=== PATIENT | male | born 1975 | race Caucasian/White ===

== ENCOUNTER 2020-11-23 07:02 | Emergency (ER) | payer BC, SELFPAY ==
[2020-11-23 07:24] VITALS: BP 139/87; PULSE 75; RESP 18; TEMP 37; O2SAT 100
[2020-11-23 07:50] LABS: Add Urine Microscopic? YES; Appearance Urine Cloudy (Clear); Bilirubin Urine Negative (Negative); Blood Urine 2+ (Negative); Color Urine Yellow (Yellow); Glucose Urine UA Negative (Negative); Ketones Urine Negative (Negative); Leukocyte Esterase Ur Negative LEU/UL (Negative); Mucus Urine Few /lpf; Nitrate Urine Negative (Negative); Protein Urine 1+ mg/dL (Negative); RBC Urine 21-50 /hpf (0-2); Specific Grav Ur 1.026 (1.001-1.035); Urobilinogen Urine Negative mg/dL (<2.0); WBC Urine 0-3 /hpf
[2020-11-23] MEDS: KETOROLAC 30 MG/ML VIAL (*BKC) IV PUSH (07:52)
[2020-11-23] MEDS: SODIUM CHLORIDE 0.9% IV 1,000 ML 999 ML IV CONT (07:52)
--- NOTE | 2020-11-23 07:52 | ED.GENADULT ---
HPI - General Adult General Chief complaint: Back Pain/Injury Stated complaint: back pain ? kidney stone Time Seen by Provider: 11/23/20 07:06 History of Present Illness HPI narrative: Patient is a 45-year-old male who presents ER with left-sided flank pain. Sudden onset at 6 AM. Associate with sweats and nausea. Has history of kidney stones and this feels similar but much more intense. After arrival here patient passed his kidney stone into his urine specimen cup. Still having some persistent discomfort but it has improved. No dysuria/fever/chills. Related Data Home Medications Medication Instructions Recorded Confirmed alprazolam 0.5 mg tablet 0.25 mg PO tablet 06/07/19 03/31/20 Allergies Allergy/AdvReac Type Severity Reaction Status Date / Time No Known Allergies Allergy Verified 11/23/20 07:23 Review of Systems Review of Systems: All systems reviewed & are unremarkable except as noted in HPI and below Constitutional: Constitutional: Denies chills, Denies fever(s) and Denies weakness Gastrointestinal: Gastrointestinal: Reports abdominal pain, Reports nausea and Denies vomiting Genitourinary: Genitourinary: Denies dysuria, Reports urinary frequency and Denies urinary incontinence Musculoskeletal: Musculoskeletal: Reports back pain and Denies muscle cramps PMFSH Past Medical History Medical History (Updated 11/23/20 @ 08:35 by Nura Molina MD) Hyperlipidemia HEATHER (obstructive sleep apnea) Surgical History Surgical History (Updated 11/23/20 @ 07:58 by Nura Molina MD) No pertinent past surgical history Family History Family History Mother Patient's mother is in good health Family history of elevated blood lipids Father Family history of heart disease in male family member before age 55 Social History Social History Smoking packs per day: 2 Smoking cigarettes per day: 40.0 Years smoked: 5 Smoking pack-years: 10.00 Smoking status: Former smoker Second hand tobacco smoke exposure: No Smoking end date: 05/19/00 Alcohol intake: current Gender identity (if verbalized by the patient): Male Exam Narrative: Exam Narrative: GENERAL: Well-appearing, well-nourished, and in no acute distress. HEAD: Normocephalic, atraumatic. CHEST: Clear to auscultation. No respiratory distress. HEART: Regular rate and rhythm. Normal peripheral pulses. ABDOMEN: Soft, nontender, nondistended. Right CVA tenderness. EXTREMITIES: Normal range of motion. No edema. SKIN: Warm, dry, no rash. NEURO: Alert and oriented x3. PSYCH: Normal mood and affect. Course Course Emergency Course: Pain resolved. Informed results. Discharge home. Vital Signs Vital signs: Vital Signs Temperature 98.6 F 11/23/20 07:24 Pulse Rate 75 11/23/20 07:24 Respiratory Rate 18 11/23/20 07:24 Blood Pressure 139/87 11/23/20 07:24 Pulse Oximetry 100 11/23/20 07:24 Temperature 98.6 F 11/23/20 07:24 Pulse Rate 75 11/23/20 07:24 Respiratory Rate 18 11/23/20 07:24 Blood Pressure 139/87 11/23/20 07:24 Pulse Oximetry 100 11/23/20 07:24 Medical Decision Making Vital Signs Vital Signs: Vital Signs Temperature 98.6 F 11/23/20 07:24 Pulse Rate 75 11/23/20 07:24 Respiratory Rate 18 11/23/20 07:24 Blood Pressure 139/87 11/23/20 07:24 Pulse Oximetry 100 11/23/20 07:24 Temperature 98.6 F 11/23/20 07:24 Pulse Rate 75 11/23/20 07:24 Respiratory Rate 18 11/23/20 07:24 Blood Pressure 139/87 11/23/20 07:24 Pulse Oximetry 100 11/23/20 07:24 Lab Data Labs: Lab Results 11/23/20 Range/Units 07:38 Urine Color Yellow (Yellow) Urine Appearance Cloudy H (Clear) Urine pH 5.0 (5.0-9.0) Ur Specific [place] 1.026 (1.001-1.035) Urine Protein 1+ H (Negative) mg/dL Urine Glucose (UA) Negative (Negative) mg/dL
[2020-11-23 08:46] VITALS: BP 124/87; PULSE 80; RESP 16; O2SAT 99
== END 2020-11-23 08:48 | disposition home or self-care (01) ==
PROVIDERS: Emergency Provider Emergency Medicine; PCP Internal Medicine
DX: N20.0 Calculus of kidney (principal); E78.5 Hyperlipidemia, unspecified; Z87.891 Personal history of nicotine dependence
CPT/HCPCS: 81001; 96361; 96374; 99284; J1885; J7030

== ENCOUNTER 2021-01-12 10:50 | Emergency (ER) | payer BC, SELFPAY ==
--- NOTE | ~2021-01-12 | XR_ITS ---
EXAMINATION: XR chest 2V DATE: 01/12/2021 11:17 INDICATION: Left-sided chest pain TECHNIQUE: PA and lateral views of the chest were obtained. COMPARISON: Chest radiograph dated 05/13/2007 FINDINGS: Again seen are a couple small calcified nodules in the left lung consistent with old granulomatous di sease. No other airspace opacities, pulmonary edema, pleural effusion or pneumothorax. The cardiomedi astinal silhouette is normal. Visualized bones and soft tissues are unremarkable. IMPRESSION: 1. No acute cardiopulmonary disease. Reviewed, dictated and finalized at location B.
--- NOTE | 2021-01-12 11:01 | ECG_ITS ---
Measurements Intervals [place] Rate: 87 P: 49 [place]: 141 QRS: 48 QRSD: 106 T: 15 QT: 378 QTc: 457 Interpretive Statements SINUS RHYTHM NONSPECIFIC T-WAVE ABNORMALITY- INF/LAT LEADS BASELINE ARTIFACT- II, III, AVR, AVF, V1, V3-V6 BORDERLINE ECG Electronically Signed On 01-12-2021 15:01:16 CDT by Samir Fernandes D.O.
[2021-01-12 11:02] VITALS: BP 182/108; PULSE 88; RESP 16; TEMP 36.8; O2SAT 100
[2021-01-12 11:17] LABS: Basophils Absolute Auto 0.1 K/mm3 (0.0-0.1); Eosinophils Absolute Auto 0.1 K/mm3 (0-0.3); Eosinophils Percent Auto 1.2 % (0-4.4); Hemoglobin 15.9 g/dL (14.0-18.0); Immature Granulocyte Absolute 0.02 K/mm3 (0.00-0.031); Immature Granulocyte Percent A 0.3 % (0-0.5); Lymphocytes Absolute Auto 2.05 K/mm3 (0.9-3.2); Lymphocytes Percent Auto 30.5 % (18.3-44.2); Mean Corpuscular HGB Conc 33.8 g/dl (32-36); Mean Corpuscular Hemoglobin 30.5 pg (26-34); Mean Platelet Volume 10.6 fl (7.4-10.4); Monocytes Absolute Auto 0.7 K/mm3 (0.1-0.6); Monocytes Percent Auto 10.6 % (2.6-8.5); Neutrophils Absolute Auto 3.8 K/mm3 (1.3-6.7); Neutrophils Percent Auto 56.4 % (45.5-73.1); Platelet Count Result 273 k/mm3 (150-375); Red Blood Count 5.22 M/mm3 (4.6-6.20); Red Cell Distribution Width 12.2 % (11.5-14.5); White Blood Count 6.7 K/mm3 (4.5-10.0)
[2021-01-12 11:27] LABS: Anion Gap 8 mmol/L (8-16); Blood Urea Nitrogen 14 mg/dL (9-20); Calcium 9.5 mg/dL (8.4-10.2); Carbon Dioxide 27 mmol/L (22-30); Chloride 101 mmol/L (98-107); Estimated CRCL calculation 87 ml/min; Estimated Glomerular Filt Rate > 60; Glucose 105 mg/dL (65-110); Potassium 4.6 mmol/L (3.4-5.0); Sodium 136 mmol/L (137-145)
[2021-01-12 11:33] LABS: INR 0.9; Prothrombin Time 12.3 Seconds (11.1-14.7)
[2021-01-12 11:35] LABS: Partial Thromboplastin Time 24.5 SECONDS (22.3-36.8)
[2021-01-12 11:38] LABS: Troponin I < 0.012 ng/mL (0.000-0.034)
[2021-01-12] MEDS: ASPIRIN 81 MG CHEWABLE TABLET 324 MG PO (11:38)
[2021-01-12 12:58] VITALS: BP 145/95; PULSE 77; RESP 16; O2SAT 100
--- NOTE | 2021-01-12 13:12 | ED.CHESTPAIN ---
HPI - Chest Pain General Chief Complaint: Chest Pain Stated Complaint: Chest Pain Time Seen by Provider: 01/12/21 11:09 Source: patient Mode of arrival: ambulatory Limitations: no limitations History of Present Illness HPI narrative: Patient is 45 years old white male brought to the emergency room by his who is complaining of intermittent chest pain for 1-1/2-week, sharp, tightness, usually comes at night, at rest or while sleeping. 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 Patient does not take medicine, does not smoke drinks occasionally does not use marijuana. Currently patient is asymptomatic. is telling me that patient have tremendous amount of stress lately Related Data Allergies Allergy/AdvReac Type Severity Reaction Status Date / Time No Known Allergies Allergy Verified 01/12/21 11:09 Review of Systems Review of Systems: CONSTITUTIONAL: Denies fever, chills, or sweats. EYES: Denies visual changes, redness, or discharge. ENT: Denies rhinorrhea, congestion, sore throat, or otalgia. CARDIOVASCULAR: Denies chest pain, palpitations, or edema. RESPIRATORY: Denies cough or dyspnea. GASTROINTESTINAL: Denies abdominal pain, nausea, vomiting, or diarrhea. GENITOURINARY: Denies dysuria or hematuria. SKIN: Denies rash or itching. MUSCULOSKELETAL: Denies back pain, joint pain, or myalgia. NEUROLOGIC: Denies headache, numbness, or weakness. PSYCHIATRIC: Denies anxiety or depression. [facility] Past Medical History Medical History Hyperlipidemia HEATHER (obstructive sleep apnea) Surgical History Surgical History No pertinent past surgical history Family History Family History Mother Patient's mother is in good health Family history of elevated blood lipids Father Family history of heart disease in male family member before age 55 Social History Social History Smoking packs per day: 2 Smoking cigarettes per day: 40.0 Years smoked: 5 Smoking pack-years: 10.00 Smoking status: Former smoker Second hand tobacco smoke exposure: No Smoking end date: 01/01/01 Alcohol intake: current Gender identity (if verbalized by the patient): Male Exam Narrative: General appearance: Well-developed, well-nourished Skin: Normal color Head: Normocephalic, nontraumatic Eyes: Clear conjunctiva ENT: Oropharynx normal, ears normal, nose normal Neck: Supple, nontender Chest and respiratory: Airway patent, no respiratory distress, no accessory muscle use Heart: Regular rate/rhythm Abdomen: Soft, nontender, no organomegaly, quiet bowel sounds Vascular: Normal peripheral pulses, normal capillary refill. 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 Patient does not have any coronary risk factors. Heart score is 1. Different
[2021-01-12 13:29] LABS: D Dimer < 0.22 ug/mL (<0.48)
[2021-01-12 13:35] VITALS: BP 133/87; PULSE 78; RESP 16; O2SAT 98
== END 2021-01-12 13:37 | disposition home or self-care (01) ==
PROVIDERS: Emergency Provider Emergency Medicine; PCP Internal Medicine
DX: R07.89 Other chest pain (principal); F41.9 Anxiety disorder, unspecified; G47.33 Obstructive sleep apnea (adult) (pediatric); E78.5 Hyperlipidemia, unspecified; Z87.891 Personal history of nicotine dependence; R94.31 Abnormal electrocardiogram [ECG] [EKG]
CPT/HCPCS: 36415; 71046; 80048; 84484; 85025; 85380; 85610; 85730; 93005; 99284; A9270

== ENCOUNTER 2021-06-18 16:50 | Outpatient (CLI) | payer BC, SELFPAY ==
--- NOTE | ~2021-06-18 | XR_ITS ---
EXAMINATION: XR wrist RT min 3V EXAM DATE: 06/18/2021 17:14 INDICATION: M25.531 - Pain in right wrist . TECHNIQUE: Right wrist frontal, frontal with ulnar deviation, oblique and lateral projections obtain ed and reviewed. There is no prior study for comparison. FINDINGS: Right wrist scapholunate joint space is maintained. There are no acute fractures or disloca tions identified. There is no subcutaneous gas. The soft tissue is unremarkable. There are no rad iopaque foreign bodies. IMPRESSION: 1. Unremarkable XR wrist RT min 3V exam. Reviewed, dictated and finalized at location G. 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
== END 2021-06-18 16:51 ==
LOC: MICIMG 16:52
PROVIDERS: PCP Internal Medicine; Visit Provider Internal Medicine
DX: M25.531 Pain in right wrist (principal)
CPT/HCPCS: 73110

== ENCOUNTER → 2022-11-06 11:05 | Outpatient (CLI) | payer BC, SELFPAY ==
--- NOTE | ~2022-11-06 | XR_ITS ---
Lumbosacral Spine: AP and lateral views Clinical History: Pain Findings: The normal lordotic curve is maintained. The vertebral bodies and posterior elements are i ntact. The intervertebral disc spaces are preserved. The sacroiliac joints are normally outlined. Impression: No significant abnormality. Reviewed, dictated and finalized at [facility]. Impression: No significant abnormality.
--- NOTE | ~2022-11-06 | XR_ITS ---
Cervical Spine: AP, lateral, open-mouth views Clinical History: Pain Findings: The normal lordotic curve is maintained. The vertebral bodies and posterior elements appea r intact. The intervertebral disc spaces are well maintained. Pre-vertebral soft tissues are unremar kable. Impression: No significant abnormality is seen. Reviewed, dictated and finalized at [facility]. Impression: No significant abnormality is seen.
--- NOTE | ~2022-11-06 | XR_ITS ---
Thoracic spine: Clinical Indication: Back pain AP and lateral views were performed. No fracture is seen. There is normal alignment of the vertebrae. The intervertebral disc spaces appe ar normal. Paravertebral soft tissues appear normal. Impression: No significant abnormalities noted. Reviewed, dictated and finalized at [facility]. Impression: No significant abnormalities noted.
== END ==
PROVIDERS: PCP Internal Medicine; Visit Provider Internal Medicine
DX: M54.2 Cervicalgia (principal); M54.50 Low back pain, unspecified
CPT/HCPCS: 72040; 72070; 72100

== ENCOUNTER 2023-07-04 09:26 | Inpatient (IN) | payer BC, SELFPAY ==
[2023-07-04] VITALS (11 sets, daily range): BP systolic 130–154; BP diastolic 72–95; PULSE 109–125; RESP 18–27; TEMP 36.5–38.5; O2SAT 97–100; BMI 29.0
--- NOTE | ~2023-07-04 | CT_ITS ---
EXAMINATION: CT abdomen pelvis wo con DATE: 07/04/2023 11:16 INDICATION: Right flank pain and right lower quadrant abdominal pain. TECHNIQUE: Computed tomography (CT) of the abdomen and pelvis was performed without intravenous contr ast. Automated exposure control and iterative reconstruction technique were employed. The dose-length product was 617.33 mGy-cm. COMPARISON: 09/28/2004 FINDINGS: Calcified left lower lobe nodule consistent with old granulomatous disease. Mild discoid atelectasis in the left lower lobe. Heart size is normal. No pericardial or pleural effusion. Liver, gallbladder, spleen, pancreas, bilateral adrenal glands and kidneys are normal. No urolithiasis or hydronephrosis . Bowels including the appendix are normal. There is haziness to the fat surrounding the decompressed bladder, the enlarged prostate in the bilateral seminal vesicles suspicious for cystitis, prostatiti s and seminal vesiculitis. No abscess or free intraperitoneal gas or fluid. No pathologically enlarge d abdominal or pelvic lymphadenopathy. Mild thoracic and lumbar spondylosis. IMPRESSION: 1. Inflammatory stranding about the bladder, prostate and seminal vesicles suspicious for cystitis, p rostatitis and seminal vesiculitis. Reviewed, dictated and finalized at location A. OTIST/PROSTHETIST IMPRESSION: 1. Inflammatory stranding about the bladder, prostate and seminal vesicles susp icious for cystitis, prostatitis and seminal vesiculitis.
[2023-07-04 09:58] LABS: Basophils Absolute Auto 0.1 K/mm3 (0.0-0.1); Basophils Percent Auto 0.4 % (0.2-1.2); Eosinophils Absolute Auto 0.1 K/mm3 (0-0.3); Eosinophils Percent Auto 0.4 % (0-4.4); Hematocrit 43.1 % (42.0-52.0); Hemoglobin 14.7 g/dL (14.0-18.0); Immature Granulocyte Absolute 0.12 K/mm3 (0.00-0.031); Immature Granulocyte Percent A 0.7 % (0-0.5); Lymphocytes Absolute Auto 2.03 K/mm3 (0.9-3.2); Lymphocytes Percent Auto 11.4 % (18.3-44.2); Mean Corpuscular HGB Conc 34.1 g/dl (32-36); Mean Corpuscular Hemoglobin 30.9 pg (26-34); Mean Corpuscular Volume 90.5 fl (80-100); Mean Platelet Volume 10.7 fl (7.4-10.4); Monocytes Absolute Auto 1.8 K/mm3 (0.1-0.6); Monocytes Percent Auto 9.8 % (2.6-8.5); Neutrophils Absolute Auto 13.7 K/mm3 (1.3-6.7); Neutrophils Percent Auto 77.3 % (45.5-73.1); Platelet Count Result 267 k/mm3 (150-375); Red Blood Count 4.76 M/mm3 (4.6-6.20); Red Cell Distribution Width 12.4 % (11.5-14.5); White Blood Count 17.8 K/mm3 (4.5-10.0)
[2023-07-04 10:09] LABS: Alanine Aminotransferase 76 U/L (6-50); Albumin Level 4.3 g/dL (3.5-5.1); Alkaline Phosphatase 83 U/L (38-126); Anion Gap 6 mmol/L (8-16); Aspartate Amino Transferase 54 U/L (17-59); Bilirubin,Total 1.2 mg/dL (0.2-1.3); Blood Urea Nitrogen 11 mg/dL (9-20); Calcium 9.1 mg/dL (8.4-10.2); Carbon Dioxide 26 mmol/L (22-30); Chloride 107 mmol/L (98-107); Estimated CRCL calculation 73 ml/min; Estimated Glomerular Filt Rate > 60; Glucose 114 mg/dL (65-110); Potassium 4.2 mmol/L (3.4-5.0); Sodium 139 mmol/L (137-145)
[2023-07-04 10:13] LABS: Appearance Urine Cloudy (Clear); Bacteria Urine None Seen /hpf; Bilirubin Urine Negative (Negative); Color Urine Dark Yellow (Yellow); Glucose Urine UA Negative (Negative); Ketones Urine Trace mg/dL (Negative); Leukocyte Esterase Ur Trace LEU/UL (Negative); Need Manual Microscopic Reviewed; Nitrate Urine Negative (Negative); Protein Urine 2+ mg/dL (Negative); RBC Urine 0-2 /hpf (0-2); Specific Grav Ur 1.026 (1.001-1.035); Squamous Epithelial Cell Urine None seen /hpf (Few); WBC Urine 51-100 /hpf
[2023-07-04 10:17] LABS: Add Urine Microscopic? YES
[2023-07-04 11:20] LABS: Influenza A QL RT-PCR Negative (Negative); Influenza B QL RT-PCR Negative (Negative); RSV RNA, RT-PCR Negative (Negative); SARS-CoV-2 RNA PCR Negative (Negative)
[2023-07-04] MEDS: SODIUM CHLORIDE 0.9% IV 1,000 ML 999 ML IV CONT ×2 (11:29→12:22)
--- NOTE | 2023-07-04 11:33 | ED.MALEGU ---
HPI - Male Genitourinary General Chief complaint: Urogenital-Male <KAMRAN Nieves Last Filed: 07/04/23 15:43> Stated complaint: difficulty urinating <KAMRAN Nieves Last Filed: 07/04/23 15:43> Time Seen by Provider: 07/04/23 10:29 <KAMRAN Nieves Last Filed: 07/04/23 15:43> Source: patient <KAMRAN Nieves Last Filed: 07/04/23 15:43> Mode of arrival: ambulatory <KAMRAN Nieves Last Filed: 07/04/23 15:43> Limitations: no limitations <KAMRAN Nieves Last Filed: 07/04/23 15:43> History of Present Illness HPI Narrative: Patient is a 47-year-old male who presents to the ED with difficulty urinating. Patient reports history of kidney stones. He developed pain in his right flank region, radiating around to his right lower abdomen on Friday. States pain felt similar to previous kidney stones. Pain resolved around Friday, denies significant further pain. However since Friday, patient has been having suprapubic pressure, difficulty urinating, urinary frequency/urgency, dysuria. Denies hematuria. He does report persistent fevers since Friday, Tmax 103F. Denies nausea, vomiting. at bedside notes that patient's son has been sick with influenza, however patient denies any recent cough or cold symptoms. <KAMRAN Nieves Last Filed: 07/04/23 15:43> Related Data Allergies/Adverse reactions: Allergies Allergy/AdvReac Type Severity Reaction Status Date / Time No Known Allergies Allergy Verified 07/04/23 10:57 <KAMRAN Nieves Last Filed: 07/04/23 15:43> Review of Systems Review of Systems: CONSTITUTIONAL: See HPI. CARDIOVASCULAR: Denies chest pain. RESPIRATORY: Denies dyspnea. GASTROINTESTINAL: See HPI. GENITOURINARY: See HPI. MUSCULOSKELETAL: See HPI. <KAMRAN Nieves Filed: 07/04/23 15:43> All systems reviewed & are unremarkable except as noted in HPI and below <Spring Randolph PA-C - Last Filed: 07/04/23 15:43> ON LICENSE OF [facility] Past Medical History Medical History: Medical History Borderline hypertension Hyperlipidemia <Spring Randolph PA-C - Last Filed: 07/04/23 15:43> Surgical History Surgical History: Surgical History No pertinent past surgical history <Spring Randolph PA-C - Last Filed: 07/04/23 15:43> Family History Family History: Family History Mother Patient's mother is in good health Family history of elevated blood lipids Father Family history of heart disease in male family member before age 55 <Spring Randolph PA-C - Last Filed: 07/04/23 15:43> Social History Social History: Social History Social History: Surrogate medical decision maker: Elana Hoover, spouse. Code status: Full code. Smoking packs per day: 2 Smoking cigarettes per day: 40.0 Years smoked: 5 Smoking pack-years: 10.00 Smoking status: Former smoker Tobacco type: cigarettes Second hand tobacco smoke exposure: No Alcohol intake: never Substance use: never Substance use type: does not use Do You Feel Safe in your Home?: Yes Lack of Transportation: No Lack of Food: Never True Current Housing: I Have Housing Concerned About Future Housing: No Difficulty Paying Gas/Electric Bills: No Difficulty Paying for Meds: No Currently Unemployed: No Education: Bachelor's Degree Difficulty w/ Childcare or Family Care: No Living arrangements: with family Additional living arrangements comments: Lives with family in [place]. 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
[2023-07-04 11:43] LABS: Lactic Acid Reflex 1.2 mmol/L (0.7-2.0)
[2023-07-04 14:02] LABS: Trichomonas Vag PCR NOT DETECTED (NOT DETECTE)
[2023-07-04] MEDS: VANCOMYCIN 1,500 MG/NS 500 ML 1,500 MG/500 ML BAG 250 MG IVPB (14:07)
[2023-07-04 14:25] LABS: Chlamydia trachomatis NOT DETECTED (NOT DETECTE); Neisseria gonorrhoeae PCR NOT DETECTED (NOT DETECTE)
--- NOTE | 2023-07-04 14:39 | WPDURCON ---
Assessment and Plan Assessment and plan (1) Sepsis: Code(s): A41.9 - Sepsis, unspecified organism Status: Acute Assessment and Plan: Acute UTI/prostatitis felt to be source of infection. Continue broad spectrum antibiotics while awaiting urine and blood cultures. Monitor fever curve. (2) UTI (urinary tract infection): Code(s): N39.0 - Urinary tract infection, site not specified Status: Acute Assessment and Plan: Urine culture pending; continue broad spectrum antibiotics while awaiting culture results. He will require outpatient cystoscopy for further evaluation pending resolution of infection. (3) Acute prostatitis: Code(s): N41.0 - Acute prostatitis Status: Acute Assessment and Plan: Continue antibiotics as above and tailor to urine cultures. Will require at least 2 weeks of culture specific antibiotics. (4) Seminal vesiculitis: Code(s): N49.0 - Inflammatory disorders of seminal vesicle Status: Acute Assessment and Plan: Plan as above. Urology Consult Note HPI Date Seen: 07/04/23 Requesting Physician: Lisha Moncada MD Primary Care Provider: Shemar Hernandez PA-C Consult Narrative Narrative: Marc Hoover is a healthy 47 year old male who is being seen in consultation for evaluation of prostatitis. The patient presented to the emergency department today with complaints of three days of pelvic and perineal discomfort, dysuria, fevers, and chills. He states he had a fever up to 103 at home. Endorses chills. He denies nausea or vomiting. Denies hematuria. Denies urgency or frequency. He states he has never had a urinary tract infection before. He reports no concern for STDs. He has no prior urologic issues and has never seen a urologist in the past. He reports remote history of kidney stones which have passed spontaneously. On arrival to the ER, a CT scan was completed which demonstrates inflammatory stranding about the bladder, prostate, and seminal vesicles without evidence of abscess or free fluid. His WBC is elevated at 17.8. Creatinine is 1.1. Lactic acid is within normal limits. UA is abnormal with leukocytes and WBCs. Urine culture and blood cultures are pending. He is tachycardic and tachypneic but remains afebrile. Review of Systems Review of Systems: All systems reviewed & are unremarkable except as noted in HPI and below PMFSH Past Medical History Medical History Hyperlipidemia HEATHER (obstructive sleep apnea) Surgical History Surgical History No pertinent past surgical history Family History Family History Mother Patient's mother is in good health Family history of elevated blood lipids Father Family history of heart disease in male family member before age 55 Social History Social History Smoking packs per day: 2 Smoking cigarettes per day: 40.0 Years smoked: 5 Smoking pack-years: 10.00 Smoking status: Former smoker Second hand tobacco smoke exposure: No Smoking end date: 05/19/00 Alcohol intake: current Lack of Transportation: No Lack of Food: Never True Current Housing: I Have Housing Concerned About Future Housing: No Difficulty Paying Gas/Electric Bills: No Difficulty Paying for Meds: No Currently Unemployed: No Education: Bachelor's Degree Difficulty w/ Childcare or Family Care: No Living arrangements: with family Occupation/Education: occupation 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
[2023-07-04] MEDS: ACETAMINOPHEN 325 MG TABLET 650 MG PO (15:20)
--- NOTE | 2023-07-04 15:20 | PM.IMHP ---
H&P: HPI History of Present Illness Date/Time: 07/04/23 15:30 Chief Complaint: Abdominal pain and difficulties urinating. Narrative: This is a pleasant 47-year-old male with history of kidney stone and borderline hypertension who presented to the emergency department via private vehicle from home for evaluation of abdominal pain and difficulties urinating. The patient provides the following history. Sometime on Friday he 1st noticed discomfort in the right flank which radiated into the right lower abdomen. The discomfort is similar to when he had prior kidney stones. The discomfort resolved by Friday and he figured that he must have passed a stone. However L on Friday evening he started to experience multiple urinary symptoms including frequency, urgency, dysuria, and difficulties emptying his bladder with reports that at times he just dribbles small amounts of urine. He has been running a fever since Friday with a T-max of 103? F. He has never had similar symptoms with urinating. He denies hematuria, penile discharge, and concerns for sexually transmitted infections. No nausea, vomiting, or diarrhea. His son was recently diagnosed with influenza though he denies cold or flu symptoms. In the ED: He has been afebrile since arrival. Blood pressures have been running in the 130s to 150s systolic. He is tachycardic. Persistently tachypneic and tachycardic. Labs were significant for WBC count of 17.8, BUN 11, creatinine 1.10, lactic acid 1.2. Urine showed 2+ protein, trace ketones, trace leukocyte esterase, [address] of the abdomen and pelvis showed inflammatory stranding about the bladder, prostate, and seminal vesicles. He was given a dose of ceftriaxone 1 g and vancomycin 1500 mg and he is being admitted in this setting for further antibiotics and urology consultation. Review of Systems Review of Systems: Twelve systems were reviewed and are negative except for as per HPI. [facility] Past Medical History Medical History (Updated 07/04/23 @ 21:46 by Nimo Rosario PA-C) Borderline hypertension Hyperlipidemia Obstructive sleep apnea on CPAP Surgical History Surgical History No pertinent past surgical history Family History Family History Mother Patient's mother is in good health Family history of elevated blood lipids Father Family history of heart disease in male family member before age 55 Social History Social History Social History: Surrogate medical decision maker: Elana Hoover, spouse. Code status: Full code. Smoking packs per day: 2 Smoking cigarettes per day: 40.0 Years smoked: 5 Smoking pack-years: 10.00 Smoking status: Former smoker Tobacco type: cigarettes Second hand tobacco smoke exposure: No Alcohol intake: never Substance use: never Substance use type: does not use Do You Feel Safe in your Home?: Yes Lack of Transportation: No Lack of Food: Never True Current Housing: I Have Housing Concerned About Future Housing: No Difficulty Paying Gas/Electric Bills: No Difficulty Paying for Meds: No Currently Unemployed: No Education: Bachelor's Degree Difficulty w/ Childcare or Family Care: No Living arrangements: with family Additional living arrangements comments: Lives with family in [place]. 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 Spiritual care concerns: No Meds Home Medications and Allergies Home Medications Medication Instructions Recorded Confirmed Type sertraline 25 mg tablet 25 mg PO DAILY #90 tabs 06/19/22 07/04/23 Rx Allergies Allergy/AdvReac Type Severity Reaction Status Date / Time No Known Allergies Allergy Verified 07/04/23 10:57 Vital Signs Vital Signs - 24 hr 07/04/23 09:38
[2023-07-04] MEDS: SODIUM CHLORIDE 0.9% IV 1,000 ML 100 ML IV CONT (15:30)
--- NOTE | 2023-07-04 15:32 | PC.NURSE ---
This patient, Marc Hoover, was admitted to Medical Room 343-01. Patient/family oriented to hospital policies and general routines including ID bracelet, bed and alarms, visiting hours, pain management, procedures, bathroom and other care routines, personal items, smoking policy, room service/diet, and visiting hours. Information on how to activate the Rapid Response Team has been discussed. Patient/Family are encouraged to report perceived risks to care and to ask questions if they do not understand what they are told or what they should do.
[2023-07-04] MEDS: ONDANSETRON INJ 4 MG/2 ML VIAL IV PUSH (15:43)
[2023-07-04] MEDS: HYDROcodone/acetaminophen (*CRX) 5-325 MG TABLET 1 TAB PO (19:28)
[2023-07-04] MEDS: cefTRIAXone 2 GM/NS 100 ML 2 GM/100 ML BAG IVPB (20:28)
[2023-07-05] VITALS (11 sets, daily range): BP systolic 121–138; BP diastolic 80–97; PULSE 84–118; RESP 14–16; TEMP 36.9–37.5; O2SAT 97–99
[2023-07-05] MEDS: SODIUM CHLORIDE 0.9% IV 1,000 ML 100 ML IV CONT ×3 (04:05→20:07)
[2023-07-05] MEDS: MORPHINE SULFATE (*CRX) 4 MG/ML INJ 2 MG IV PUSH ×2 (04:09→08:32)
[2023-07-05 06:23] LABS: Hematocrit 37.4 % (42.0-52.0); Hemoglobin 12.2 g/dL (14.0-18.0); Mean Corpuscular HGB Conc 32.6 g/dl (32-36); Mean Corpuscular Hemoglobin 30.7 pg (26-34); Mean Platelet Volume 11.2 fl (7.4-10.4); Platelet Count Result 230 k/mm3 (150-375); Red Blood Count 3.98 M/mm3 (4.6-6.20); Red Cell Distribution Width 12.5 % (11.5-14.5); White Blood Count 14.9 K/mm3 (4.5-10.0)
[2023-07-05 06:24] LABS: Anion Gap 4 mmol/L (8-16); Blood Urea Nitrogen 11 mg/dL (9-20); Calcium 8.1 mg/dL (8.4-10.2); Carbon Dioxide 25 mmol/L (22-30); Chloride 109 mmol/L (98-107); Estimated CRCL calculation 88 ml/min; Estimated Glomerular Filt Rate > 60; Glucose 114 mg/dL (65-110); Potassium 4.2 mmol/L (3.4-5.0); Sodium 138 mmol/L (137-145)
[2023-07-05] MEDS: ENOXAPARIN 40 MG/0.4 ML SYRINGE SUB-Q (08:30)
[2023-07-05] MEDS: SERTRALINE HCL 25 MG TABLET PO (08:31)
[2023-07-05] MEDS: HYDROcodone/acetaminophen (*CRX) 5-325 MG TABLET 1 TAB PO ×2 (11:51→18:06)
--- NOTE | 2023-07-05 14:58 | PM.IMPN ---
Progress Note: A&P Assessment and Plan (1) Sepsis: Qualifiers: Sepsis acute organ dysfunction status: unspecified Sepsis type: sepsis due to unspecified organism Qualified Code(s): A41.9 - Sepsis, unspecified organism Code(s): A41.9 - Sepsis, unspecified organism Status: Acute Assessment and Plan: He meets sepsis criteria with fever, tachycardia, tachypnea, and leukocytosis in the setting of infection. Blood pressures have been stable in his lactic acid level is normal. CT scan showed prostatitis, possible cystitis, and seminal vesiculitis. He has been started on ceftriaxone 2 g Q 24 hours, pending blood and urine cultures. Urology was consulted by the ED provider and their input is appreciated. (2) Acute prostatitis: Code(s): N41.0 - Acute prostatitis Status: Acute Assessment and Plan: CT scan showed prostatitis, possible cystitis, and seminal vesiculitis. He has been started on ceftriaxone 2 g Q 24 hours, pending blood and urine cultures. Urology was consulted by the ED provider and their input is appreciated. STI testing is negative for chlamydia, gonorrhea, and trichomonas. Will order RPR and HIV. (3) Borderline hypertension: Code(s): R03.0 - Elevated blood-pressure reading, without diagnosis of hypertension Status: Acute Assessment and Plan: Patient reports borderline hypertension with blood pressures running in the 130s to 150s systolic. Continue to monitor closely for now and consider starting antihypertensives depending on how he trends. (4) Obstructive sleep apnea on CPAP: Code(s): G47.33 - Obstructive sleep apnea (adult) (pediatric) Status: Acute Assessment and Plan: CPAP will be provided for the patient to use while hospitalized. His home medications will be reviewed and resumed as appropriate. Subjective Date/time seen: 07/05/23 14:58 Interval history: Patient having urethral pain. Patient describes the pain at the base of his urethral orifice extending all the way in to his bladder. He denies any testicular pain and does have a dull aching pain in his perineum. Analgesics as needed. Continue IV antibiotics. Waiting for urine cultures to result. Will order HIV and RPR on him for the morning. Continue supportive care. Exam Narrative: GENERAL: Comfortable, no acute distress HENMT: moist mucous membranes EYES: EOM intact b/l NECK: no lymphadenopathy RESPIRATORY: clear to auscultation CARDIO: RRR GI: soft, nontender, bowel sounds present : No redness, irritation or swelling to the penile shaft, urethral orifice or scrotum. No penile discharge noted. SKIN: no rashes EXTREMITIES: no edema, redness or tenderness Objective Data Vital Signs Vital Signs: Vital Signs - 24 hr 07/04/23 15:20 07/04/23 15:20 07/04/23 16:20 Temperature 101.3 F H 99.0 F Pulse Rate 118 H Respiratory Rate 22 H Blood Pressure 133/72 Pulse Oximetry 100 Oxygen Delivery 07/04/23 19:45 07/04/23 20:00 07/04/23 20:00 Temperature 98.7 F Pulse Rate 110 H 111 H Respiratory Rate 20 Blood Pressure 132/77 Pulse Oximetry 99 Oxygen Delivery Room Air 07/05/23 00:00 07/05/23 05:29 07/05/23 04:00 Temperature 99.5 F Pulse Rate 100 118 H 104 H Respiratory Rate 16 Blood Pressure 121/82 Pulse Oximetry 98 Oxygen Delivery 07/04/23 22:30 07/05/23 08:00 07/05/23 08:00 Temperature Pulse Rate 110 H 118 H Respiratory Rate 16 Blood Pressure Pulse Oximetry 97 98 Oxygen Delivery Room Air 07/05/23 09:00 Temperature Pulse Rate 110 H Respiratory Rate Blood Pressure Pulse Oximetry Oxygen Delivery Room Air Intake/Output Intake/Output: Intake & Output 07/02/23 07/03/23 07/04/23 07/05/23 23:59 23:59 23:59 23:59 Intake Total 3270 3565 Output Total 200 500 Balance 3070 2014 Meds/Results Medications: Acti
[2023-07-05] MEDS: cefTRIAXone 2 GM/NS 100 ML 2 GM/100 ML BAG IVPB (20:07)
[2023-07-06] VITALS (10 sets, daily range): BP systolic 126–172; BP diastolic 91–95; PULSE 77–101; RESP 16–20; TEMP 36.5–37.2; O2SAT 97–99
[2023-07-06] MEDS: HYDROcodone/acetaminophen (*CRX) 5-325 MG TABLET 1 TAB PO ×4 (00:38→22:19)
[2023-07-06 05:49] LABS: Hematocrit 35.6 % (42.0-52.0); Hemoglobin 11.9 g/dL (14.0-18.0); Mean Corpuscular HGB Conc 33.4 g/dl (32-36); Mean Corpuscular Hemoglobin 30.7 pg (26-34); Mean Corpuscular Volume 91.8 fl (80-100); Mean Platelet Volume 10.7 fl (7.4-10.4); Platelet Count Result 236 k/mm3 (150-375); Red Blood Count 3.88 M/mm3 (4.6-6.20); Red Cell Distribution Width 12.3 % (11.5-14.5); White Blood Count 11.3 K/mm3 (4.5-10.0)
[2023-07-06 06:00] LABS: Anion Gap 5 mmol/L (8-16); Blood Urea Nitrogen 7 mg/dL (9-20); Calcium 8.4 mg/dL (8.4-10.2); Carbon Dioxide 28 mmol/L (22-30); Chloride 107 mmol/L (98-107); Estimated CRCL calculation 110 ml/min; Estimated Glomerular Filt Rate > 60; Glucose 100 mg/dL (65-110); Sodium 140 mmol/L (137-145)
[2023-07-06] MEDS: ENOXAPARIN 40 MG/0.4 ML SYRINGE SUB-Q (09:23)
[2023-07-06] MEDS: SODIUM CHLORIDE 0.9% IV 1,000 ML 100 ML IV CONT ×2 (09:24→20:24)
[2023-07-06] MEDS: SERTRALINE HCL 25 MG TABLET PO (09:24)
[2023-07-06] MEDS: VANCOMYCIN 1,500 MG/NS 500 ML 1,500 MG/500 ML BAG 250 MG IVPB (13:19)
--- NOTE | 2023-07-06 14:21 | PM.IMPN ---
Progress Note: A&P Assessment and Plan (1) Sepsis: Qualifiers: Sepsis acute organ dysfunction status: unspecified Sepsis type: sepsis due to unspecified organism Qualified Code(s): A41.9 - Sepsis, unspecified organism Code(s): A41.9 - Sepsis, unspecified organism Status: Acute Assessment and Plan: He meets sepsis criteria with fever, tachycardia, tachypnea, and leukocytosis in the setting of infection. Blood pressures have been stable in his lactic acid level is normal. CT scan showed prostatitis, possible cystitis, and seminal vesiculitis. He has been started on ceftriaxone 2 g Q 24 hours, pending blood and urine cultures. Urology was consulted by the ED provider and their input is appreciated. (2) Acute prostatitis: Code(s): N41.0 - Acute prostatitis Status: Acute Assessment and Plan: CT scan showed prostatitis, possible cystitis, and seminal vesiculitis. Blood cultures no growth to date. Urine culture positive for Enterococcus. Rocephin discontinued patient started on vancomycin. Urology was consulted by the ED provider and their input is appreciated. STI testing is negative for chlamydia, gonorrhea, and trichomonas. RPR and HIV pending. (3) Borderline hypertension: Code(s): R03.0 - Elevated blood-pressure reading, without diagnosis of hypertension Status: Acute Assessment and Plan: Patient reports borderline hypertension with blood pressures running in the 130s to 150s systolic. Continue to monitor closely for now and consider starting antihypertensives depending on how he trends. (4) Obstructive sleep apnea on CPAP: Code(s): G47.33 - Obstructive sleep apnea (adult) (pediatric) Status: Acute Assessment and Plan: CPAP will be provided for the patient to use while hospitalized. His home medications will be reviewed and resumed as appropriate. Subjective Date/time seen: 07/06/23 14:21 Interval history: Patient continued to have discomfort. Patient still having pain with urination as well as urinary frequency and he is having difficulty starting a stream of urine. Patient's urine culture did come with Enterococcus and antibiotics for transition to vancomycin. Exam Narrative: GENERAL: Comfortable, no acute distress HENMT: moist mucous membranes EYES: EOM intact b/l NECK: no lymphadenopathy RESPIRATORY: clear to auscultation CARDIO: RRR GI: soft, nontender, bowel sounds present : No redness, irritation or swelling to the penile shaft, urethral orifice or scrotum. No penile discharge noted. SKIN: no rashes EXTREMITIES: no edema, redness or tenderness Objective Data Vital Signs Vital Signs: Vital Signs - 24 hr 07/05/23 16:00 07/05/23 19:49 07/05/23 20:34 Temperature 99 F Pulse Rate 101 H 88 Respiratory Rate 14 Blood Pressure 134/97 H Pulse Oximetry 98 99 Oxygen Delivery CPAP 07/05/23 20:00 07/05/23 20:00 07/06/23 00:00 Temperature Pulse Rate 85 84 83 Respiratory Rate Blood Pressure Pulse Oximetry Oxygen Delivery Room Air 07/06/23 04:32 07/06/23 04:00 07/06/23 05:11 Temperature 98.6 F Pulse Rate 84 83 Respiratory Rate 16 Blood Pressure 126/91 H Pulse Oximetry 98 97 Oxygen Delivery CPAP 07/06/23 09:24 07/06/23 08:00 07/06/23 13:47 Temperature 97.7 F Pulse Rate 86 101 H Respiratory Rate 20 Blood Pressure 143/94 H Pulse Oximetry 98 Oxygen Delivery Room Air Intake/Output Intake/Output: Intake & Output 07/03/23 07/04/23 07/05/23 07/06/23 23:59 23:59 23:59 23:59 Intake Total 3370 5095 1120 Output Total 200 2150 1650 Balance 3170 2945 -530 Meds/Results Medications: Active Medications Generic Name Dose Route Start Last Admin Trade Name Freq PRN Reason Stop Dose Admin Acetaminophen 650 mg 07/04/23 13:08 07/04/23 15:20 Acetaminophen 325 Mg Tablet PO 650 mg
[2023-07-06] MEDS: MORPHINE SULFATE (*CRX) 2 MG/ML INJ IV PUSH ×2 (17:32→20:22)
[2023-07-07] VITALS: PULSE 82
[2023-07-07] MEDS: VANCOMYCIN 1,500 MG/NS 500 ML 1,500 MG/500 ML BAG 250 MG IVPB ×2 (03:20→14:26)
[2023-07-07 04:00] VITALS: PULSE 66
[2023-07-07] MEDS: SODIUM CHLORIDE 0.9% IV 1,000 ML 100 ML IV CONT (05:54)
[2023-07-07] MEDS: HYDROcodone/acetaminophen (*CRX) 5-325 MG TABLET 1 TAB PO ×2 (05:54→16:32)
[2023-07-07 06:00] VITALS: BP 109/68; PULSE 77; RESP 16; TEMP 36.6; O2SAT 99
[2023-07-07 06:09] LABS: Hemoglobin 11.5 g/dL (14.0-18.0); Mean Corpuscular HGB Conc 33.8 g/dl (32-36); Mean Corpuscular Hemoglobin 30.8 pg (26-34); Mean Corpuscular Volume 91.2 fl (80-100); Platelet Count Result 276 k/mm3 (150-375); Red Blood Count 3.73 M/mm3 (4.6-6.20); Red Cell Distribution Width 12.2 % (11.5-14.5); White Blood Count 8.4 K/mm3 (4.5-10.0)
[2023-07-07 06:49] LABS: Anion Gap 7 mmol/L (8-16); Blood Urea Nitrogen 7 mg/dL (9-20); Calcium 8.2 mg/dL (8.4-10.2); Carbon Dioxide 24 mmol/L (22-30); Chloride 110 mmol/L (98-107); Estimated CRCL calculation 126 ml/min; Estimated Glomerular Filt Rate > 60; Glucose 100 mg/dL (65-110); Sodium 141 mmol/L (137-145)
[2023-07-07 08:40] LABS: Glucose Point of Care 80 mg/dl (65-105)
[2023-07-07] MEDS: SERTRALINE HCL 25 MG TABLET PO (08:56)
[2023-07-07] MEDS: ENOXAPARIN 40 MG/0.4 ML SYRINGE SUB-Q (08:56)
--- NOTE | 2023-07-07 13:01 | PM.IMPN ---
Progress Note: A&P Assessment and Plan (1) Acute prostatitis: Code(s): N41.0 - Acute prostatitis Status: Acute Assessment and Plan: CT scan showed prostatitis, possible cystitis, and seminal vesiculitis. Blood cultures no growth to date. Urine culture positive for Enterococcus. Rocephin discontinued patient started on vancomycin. Urology was consulted by the ED provider and their input is appreciated. STI testing is negative for chlamydia, gonorrhea, and trichomonas. RPR and HIV pending. (2) Sepsis: Qualifiers: Sepsis acute organ dysfunction status: unspecified Sepsis type: sepsis due to unspecified organism Qualified Code(s): A41.9 - Sepsis, unspecified organism Code(s): A41.9 - Sepsis, unspecified organism Status: Resolved Assessment and Plan: He meets sepsis criteria with fever, tachycardia, tachypnea, and leukocytosis in the setting of infection. Blood pressures have been stable in his lactic acid level is normal. CT scan showed prostatitis, possible cystitis, and seminal vesiculitis. Urology was consulted by the ED provider and their input is appreciated. Resolved. (3) Borderline hypertension: Code(s): R03.0 - Elevated blood-pressure reading, without diagnosis of hypertension Status: Acute Assessment and Plan: Patient reports borderline hypertension with blood pressures running in the 130s to 150s systolic. Continue to monitor closely for now and consider starting antihypertensives depending on how he trends. (4) Obstructive sleep apnea on CPAP: Code(s): G47.33 - Obstructive sleep apnea (adult) (pediatric) Status: Acute Assessment and Plan: CPAP will be provided for the patient to use while hospitalized. His home medications will be reviewed and resumed as appropriate. Subjective Date/time seen: 07/07/23 13:01 Interval history: Patient still having a pretty significant amount of pain. Would like to keep him for additional day of IV antibiotics due to not being treated appropriately the past several days. He states that the pain is little better this morning than it was last night. Will plan to keep him 1 more day and discharge home tomorrow. Exam Narrative: GENERAL: Comfortable, no acute distress HENMT: moist mucous membranes EYES: EOM intact b/l NECK: no lymphadenopathy RESPIRATORY: clear to auscultation CARDIO: RRR GI: soft, nontender, bowel sounds present : No redness, irritation or swelling to the penile shaft, urethral orifice or scrotum. No penile discharge noted. SKIN: no rashes EXTREMITIES: no edema, redness or tenderness Objective Data Vital Signs Vital Signs: Vital Signs - 24 hr 07/06/23 13:47 07/06/23 16:00 07/06/23 20:33 Temperature 97.7 F 98.9 F Pulse Rate 101 H 77 89 Respiratory Rate 20 16 Blood Pressure 143/94 H 172/95 H Pulse Oximetry 98 99 Oxygen Delivery 07/06/23 20:00 07/06/23 22:00 07/06/23 20:00 Temperature Pulse Rate 94 Respiratory Rate Blood Pressure Pulse Oximetry 99 Oxygen Delivery Room Air CPAP 07/07/23 00:00 07/07/23 04:00 07/07/23 06:00 Temperature 98 F Pulse Rate 82 66 77 Respiratory Rate 16 Blood Pressure 109/68 Pulse Oximetry 99 Oxygen Delivery 07/07/23 12:44 Temperature Pulse Rate Respiratory Rate Blood Pressure Pulse Oximetry Oxygen Delivery Room Air Intake/Output Intake/Output: Intake & Output 07/04/23 07/05/23 07/06/23 07/07/23 23:59 23:59 23:59 23:59 Intake Total 3370 5095 4390 1860 Output Total 200 2150 2400 1600 Balance 3170 2945 1989 260 Meds/Results Medications: Active Medications Generic Name Dose Route Start Last Admin Trade Name Freq PRN Reason Stop Dose Admin Acetaminophen 650 mg 07/04/23 13:08 07/04/23 15:20 Acetaminophen 325 Mg Tablet PO 650 mg Q4H PRN Administration Mild Pain (1-3) or Fever Hydr
[2023-07-07 14:56] LABS: Rapid Plasma Reagin Non-Reactive (NonReactive)
[2023-07-07 15:14] VITALS: BP 140/90; PULSE 84; RESP 18; TEMP 36.7; O2SAT 99
--- NOTE | 2023-07-07 15:22 | WPDUROPN2 ---
Progress Note: A&P Assessment and Plan (1) Sepsis: Qualifiers: Sepsis acute organ dysfunction status: unspecified Sepsis type: sepsis due to unspecified organism Qualified Code(s): A41.9 - Sepsis, unspecified organism Code(s): A41.9 - Sepsis, unspecified organism Status: Resolved Assessment and Plan: Acute UTI/prostatitis felt to be source of infection. Sepsis resolved. He is afebrile and vital signs are stable. Preliminary blood cultures negative to date. Continue antibiotics tailored to urine culture (2) UTI (urinary tract infection): Qualifiers: Hematuria presence: without hematuria Urinary tract infection type: acute cystitis Qualified Code(s): N30.00 - Acute cystitis without hematuria Code(s): N39.0 - Urinary tract infection, site not specified Status: Acute Assessment and Plan: Urine culture with growth of Enterococcus; patient is on vancomycin at this time which is susceptible. Will plan for outpatient follow-up in 2-3 weeks to ensure resolution of infection and improvement in symptoms. He will require outpatient cystoscopy for further evaluation pending resolution of infection. (3) Acute prostatitis: Code(s): N41.0 - Acute prostatitis Status: Acute Assessment and Plan: Continue antibiotics as above. Will require at least 2-4 weeks of culture specific antibiotics (4) Seminal vesiculitis: Code(s): N49.0 - Inflammatory disorders of seminal vesicle Status: Acute Assessment and Plan: Plan as above. (5) Bladder spasms: Code(s): N32.89 - Other specified disorders of bladder Status: Acute Assessment and Plan: Will trial oxybutynin as needed for bladder spasms Subjective Subjective Date/Time Seen: 07/07/23 15:22 Interval history: Marc is feeling improved today. He reports overnight had some bladder spasms and discomfort. Reports perineal pain still persistent, though seems improved. Denies nausea, vomiting, fever, chills. White blood cell count is within normal limits at 8.4. Creatinine 0.7. Urine culture with growth of Enterococcus. Blood cultures negative to date Review of Systems Review of Systems: All systems reviewed & are unremarkable except as noted in HPI and below Exam Narrative: General: Awake, alert, comfortable, no acute distress HEENT: Normocephalic, atraumatic, sclerae anicteric Respiratory: Normal respiratory effort, no accessory muscle use Abdomen: Nondistended Skin: Normal coloration, warm and dry Neurologic: No focal neuro deficits noted Psychiatric: Appropriate mood and affect, judgment and insight intact Objective Data Vital Signs Vital Signs: Vital Signs - 24 hr 07/06/23 16:00 07/06/23 20:33 07/06/23 20:00 Temperature 98.9 F Pulse Rate 77 89 Respiratory Rate 16 Blood Pressure 172/95 H Pulse Oximetry 99 Oxygen Delivery Room Air 07/06/23 22:00 07/06/23 20:00 07/07/23 00:00 Temperature Pulse Rate 94 82 Respiratory Rate Blood Pressure Pulse Oximetry 99 Oxygen Delivery CPAP 07/07/23 04:00 07/07/23 06:00 07/07/23 12:44 Temperature 98 F Pulse Rate 66 77 Respiratory Rate 16 Blood Pressure 109/68 Pulse Oximetry 99 Oxygen Delivery Room Air 07/07/23 15:14 Temperature 98.1 F Pulse Rate 84 Respiratory Rate 18 Blood Pressure 140/90 Pulse Oximetry 99 Oxygen Delivery Intake/Output Intake/Output: Intake & Output 07/04/23 07/05/23 07/06/23 07/07/23 23:59 23:59 23:59 23:59 Intake Total 3370 5095 4390 1860 Output Total 200 2150 2400 1600 Balance 3173 1518 1989 260 Meds/Results Medications: Active Medications Generic Name Dose Route Start Last Admin Trade Name Freq PRN Reason Stop Dose Admin Acetaminophen 650 mg 07/04/23 13:08 07/04/23 15:20 Acetaminophen 325 Mg Tablet PO 650 mg Q4H PRN Administration Mild Pain (1-3) or Fever Hydrocodon
[2023-07-07] MEDS: oxyBUTYnin CHLORIDE 5 MG TABLET PO (16:32)
--- NOTE | 2023-07-07 18:49 | PC.NURSE ---
RN did not give patient 1700 dose of Pyridium due to bringing in AZO and patient taking a dose of that this evening. RN educated patient to not take home AZO while here because we do not scan it into our charting system therefore the next RN will not know what patient has and has not taken. Patient verbalized understanding.
[2023-07-07 21:04] VITALS: BP 150/88; PULSE 68; RESP 18; TEMP 36.5; O2SAT 99
[2023-07-08 01:33] LABS: Vancomycin Trough 10.7 ug/mL (10.0-20.0)
[2023-07-08 02:12] VITALS: O2SAT 98
[2023-07-08] MEDS: VANCOMYCIN 1,500 MG/NS 500 ML 1,500 MG/500 ML BAG 250 MG IVPB (02:49)
[2023-07-08 06:00] VITALS: BP 126/81; PULSE 61; RESP 14; TEMP 36.8; O2SAT 97
[2023-07-08 06:19] LABS: Hematocrit 35.4 % (42.0-52.0); Hemoglobin 11.6 g/dL (14.0-18.0); Mean Corpuscular HGB Conc 32.8 g/dl (32-36); Mean Corpuscular Hemoglobin 30.1 pg (26-34); Mean Corpuscular Volume 91.9 fl (80-100); Mean Platelet Volume 10.9 fl (7.4-10.4); Platelet Count Result 298 k/mm3 (150-375); Red Blood Count 3.85 M/mm3 (4.6-6.20); Red Cell Distribution Width 12.2 % (11.5-14.5); White Blood Count 6.3 K/mm3 (4.5-10.0)
[2023-07-08 06:32] LABS: Anion Gap 5 mmol/L (8-16); Blood Urea Nitrogen 10 mg/dL (9-20); Carbon Dioxide 27 mmol/L (22-30); Chloride 109 mmol/L (98-107); Estimated CRCL calculation 88 ml/min; Estimated Glomerular Filt Rate > 60; Glucose 100 mg/dL (65-110); Potassium 4.2 mmol/L (3.4-5.0); Sodium 141 mmol/L (137-145)
[2023-07-08] MEDS: AMOXICILLIN 500 MG CAPSULE PO (09:58)
[2023-07-08] MEDS: PHENAZOPYRIDINE HCL 100 MG TABLET 200 MG PO (09:58)
[2023-07-08] MEDS: SERTRALINE HCL 25 MG TABLET PO (09:58)
[2023-07-08] MEDS: ENOXAPARIN 40 MG/0.4 ML SYRINGE SUB-Q (09:58)
--- NOTE | 2023-07-08 12:27 | PM.DS ---
DS: Admitting Diagnosis Discharge Date 07/08/23 Admitting Diagnosis UTI, prostatitis DS: Discharge Diagnosis Discharge Diagnosis (1) Sepsis: Qualifiers: Sepsis acute organ dysfunction status: unspecified Sepsis type: sepsis due to unspecified organism Qualified Code(s): A41.9 - Sepsis, unspecified organism Code(s): A41.9 - Sepsis, unspecified organism Status: Resolved (2) UTI (urinary tract infection): Qualifiers: Hematuria presence: without hematuria Urinary tract infection type: acute cystitis Qualified Code(s): N30.00 - Acute cystitis without hematuria Code(s): N39.0 - Urinary tract infection, site not specified Status: Acute (3) Acute prostatitis: Code(s): N41.0 - Acute prostatitis Status: Acute (4) Seminal vesiculitis: Code(s): N49.0 - Inflammatory disorders of seminal vesicle Status: Acute (5) Bladder spasms: Code(s): N32.89 - Other specified disorders of bladder Status: Acute DS: Summary Hospital Course Hospital Course: this is a 47-year-old male with past medical history of kidney stone, borderline hypertension that presented to the ED on 07/04/2023 for evaluation of right flank pain, dysuria, frequency and urgency. Patient also having trouble emptying his bladder and also states that he had fever of T-max of 103?. He denied any penile discharge, hematuria or concern for sexually transmitted infections. Labs were significant for WBC count of 17.8, BUN 11, creatinine 1.10, lactic acid 1.2. Urine showed 2+ protein, trace ketones, trace leukocyte esterase, [address] of the abdomen and pelvis showed inflammatory stranding about the bladder, prostate, and seminal vesicles. He was given a dose of ceftriaxone 1 g and vancomycin 1500 mg and he is being admitted in this setting for further antibiotics and urology consultation. Patient had significant pain during his hospitalization. His urine culture came back positive for Enterococcus species and sensitive to vancomycin. Patient was transitioned from Rocephin to vancomycin. With the transition of antibiotics his pain did improve. Patient tested negative for gonorrhea, chlamydia, Trichomonas, HIV and syphilis. On day of discharge patient was having very minimal pain. His labs and vital signs are stable and he is medically clear for discharge at this time. Will treat prostatitis for 4 weeks. Time Spent with Patient Time attestation: Total time spent providing and/or coordinating discharge services: Exam Narrative: General: Awake, alert, comfortable, no acute distress HEENT: Normocephalic, atraumatic, sclerae anicteric Respiratory: Normal respiratory effort, no accessory muscle use Abdomen: Nondistended Skin: Normal coloration, warm and dry Neurologic: No focal neuro deficits noted Psychiatric: Appropriate mood and affect, judgment and insight intact DS: Data Data Completed and Pending Labs on day of discharge: Labs from last 24 hours 07/08/23 07/08/23 07/06/23 05:55 00:52 05:36 WBC 6.3 RBC 3.85 L Hgb 11.6 L Hct 35.4 L MCV 91.9 MCH 30.1 MCHC 32.8 RDW 12.2 Plt Count 298 MPV 10.9 H Sodium 141 Potassium 4.2 Chloride 109 H Carbon Dioxide 27 Anion Gap 5 L BUN 10 Creatinine 0.90 Estim Creat Clear Calc 88 Estimated GFR > 60 Glucose 100 Calcium 9.0 Vancomycin Trough 10.7 RPR Non-reactive Preliminary micro results at discharge 07/04/23 11:45 Blood Culture - Preliminary Blood 07/04/23 11:24 Blood Culture - Preliminary Blood Discharge Plan Discharge Attending physician on discharge: Lisha Moncada Consulting providers: Adrianna Arias Rachel N. Discharging Clinician: Aparna Hughes Patient Disposition: Home, Self-Care Activity: unlimited and as tolerated Diet: regular Discharge Instructions: Medications: Amoxicillin 5 mg q
[2023-07-09 07:37] LABS: HIV 1 2 Ag Ab 4th Gen w Rflxs Nonreactive (Nonreactive)
== END 2023-07-08 13:58 | disposition home or self-care (01) | DRG 872 ==
LOC: ANHED 12:49 → ANH3MEDSUR 13:24 → ANH3MED 14:49
PROVIDERS: Emergency Medicine; Physician Assistant; Admitting Provider Hospitalist; Emergency Provider Physician Assistant; PCP Physician Assistant; Visit Provider Internal Medicine Critical Care Medicine
DX: A41.9 Sepsis, unspecified organism (principal); N39.0 Urinary tract infection, site not specified; N41.0 Acute prostatitis; B95.2 Enterococcus as the cause of diseases classified elsewhere; N49.0 Inflammatory disorders of seminal vesicle; N32.89 Other specified disorders of bladder; E78.5 Hyperlipidemia, unspecified; Z20.822 Contact with and (suspected) exposure to COVID-19; G47.33 Obstructive sleep apnea (adult) (pediatric); R03.0 Elevated blood-pressure reading, without diagnosis of hypertension; Z87.891 Personal history of nicotine dependence
CPT/HCPCS: 36415; 74176; 80048; 80053; 80202; 81001; 82948; 83605; 83735; 85025; 85027; 86592; 87040; 87086; 87181; 87389; 87491; 87591; 87637; 87661; 96361; 96365; 96366; 96367; 96372; 96375; 96376; 99285; A9270; G0378; J0696; J1650; J2270; J2405; J3370; J7030

== ENCOUNTER 2025-02-01 00:13 | Day surgery (SDC) | payer OTHER, SELFPAY ==
--- OUTSIDE RECORDS SUMMARY | 2016-10-15 10:13 | XMS_ITS | Continuity of Care Document ---
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 Name Role Phone Mary Ann Munoz DPT Unavailable Unavailable Procedures Procedure Date THERAPEUTIC EXERCISES NEUROMUSCULAR RE-ED FUNC ACTIVITY THERAPEUTIC EXERCISES NEUROMUSCULAR RE-ED FUNC ACTIVITY HOT/COLD PACK THERAPEUTIC EXERCISES NEUROMUSCULAR RE-ED FUNC ACTIVITY HOT/COLD PACK THERAPEUTIC EXERCISES NEUROMUSCULAR RE-ED MANUAL THERAPY FUNC ACTIVITY HOT/COLD PACK THERAPEUTIC EXERCISES NEUROMUSCULAR RE-ED MANUAL THERAPY HOT/COLD PACK PT Evaluation Low Complexity THERAPEUTIC EXERCISES MANUAL THERAPY HOT/COLD PACK Progress Note THERAPEUTIC EXERCISES NEUROMUSCULAR RE-ED MANUAL THERAPY FUNC ACTIVITY THERAPEUTIC EXERCISES NEUROMUSCULAR RE-ED MANUAL THERAPY FUNC ACTIVITY THERAPEUTIC EXERCISES NEUROMUSCULAR RE-ED MANUAL THERAPY FUNC ACTIVITY THERAPEUTIC EXERCISES NEUROMUSCULAR RE-ED MANUAL THERAPY FUNC ACTIVITY HOT/COLD PACK THERAPEUTIC EXERCISES NEUROMUSCULAR RE-ED MANUAL THERAPY FUNC ACTIVITY HOT/COLD PACK THERAPEUTIC EXERCISES NEUROMUSCULAR RE-ED MANUAL THERAPY FUNC ACTIVITY HOT/COLD PACK THERAPEUTIC EXERCISES NEUROMUSCULAR RE-ED MANUAL THERAPY FUNC ACTIVITY HOT/COLD PACK PT Evaluation Low Complexity THERAPEUTIC EXERCISES MANUAL THERAPY Advance Directives Directive Yes / No Effective Date File Name No Information Encounters Encounter Description Practice Location Reason(s) For Visit Diagnoses Date Provider Providers Copied on Encounter [facility] [address] [place] [address], [id number], tel:[phone] Paul No Information September- 0-201 7 Alexander Mary Ann. . [facility] [address] [place] [address], [id number], tel:[phone] Paul No Information 8-201 7 Alexander Mary Ann. . Referring Provider: Chad Russ, [address] [place] [address], [facility]. tel:[id number], [id number], tel:[phone] Paul No Information 1201 7 Alexander Mary Ann. . Referring Provider: Chad Russ, [address] [place] [address] Office [facility] [address], [facility]. tel:[phone], [id number], tel:[phone] Paul No Information September-1 0-201 7 Alexander Mary Ann. . Referring Provider: Chad Russ, [facility] Office Building [address], [place], [address]. tel:[phone] [facility] [address], [place], [place], [id number], tel:[phone] Paul No Information September-0 2-201 7 Alexander Mary Ann. . Referring Provider: Chad Russ, [facility] [address], [place], [address]. tel:[phone] [facility] [address] [address], [place], [place], [id number], [place] tel:[phone] Paul No Information Aug-2 5-201 7 Alexander Mary Ann. . Referring Provider: Chad Russ, [address] [place] [address] Office [facility] 4 [facility] [address], [place], [address]. tel:[phone] [facility] [address] [address], [place], [place], [id number], [place] tel:[phone] Paul Cervical disc disorder, unsp, unspecified cervical regionMuscle weakness (generalized) Apr-2 0-201 7 Alexander Mary Ann. . Referring Provider: Chad Russ, [address] [place] [address] Office Building 4 [facility] [address], [place], [address]. tel:[phone] [facility] [address], [place], [place], [id number], [place] tel:[phone] Paul No Information Fe-2 0-201 7 Alexander Mary Ann. . [facility], [place], [place], [id number], [place] tel:[phone] Paul No Information Jun- 5-201 7 Alexander Mary Ann. . [facility], [place], [place], [id number], [place] tel:[phone] Paul No Information b- 3-201 7 Alexander Mary Ann. . [facility], [place], [place], [id number], tel:[phone] Paul No Information Alexander Mary Ann. . [facility], [place], [place], [id number], tel:[phone] Paul No Information Alexander Mary Ann. . [facility], [place], [place], [id number], tel:[phone] Paul No Information Alexander Mary Ann. . [facility], [place], [place], [id number], tel:[phone] Paul No Information Alexander Chairezica. . [facility], [place], [place], [id number], tel:[phone] Paul CervicalgiaOther specified dorsopathies, cervical regionOth symptoms and signs involving the musculoskeletal system Alexander Mary Ann. . Family History Family Member Type Diagnosis Age At Onset No Information Payers Payer name Insurance type Covered green party ID Authorrubio melendrez(s) [employer] [id number] Social History Type Description Quantity Date Captured Comments Sex Male Smoking Status No Information Chief Complaint And Reason For Visit No Information Reason For Referral Reason For Referral No Information History Of Present Illness Encounter Date Complaint History Of Prese nt Illness No Information Functional Status Date Functional Assessmen t No Information Instructions Date Instruction Additional Infor mation No Information Assessments Type Assessment Date No Information Patient Care Teams Name Effective Dates (start - stop) Status Members No Information
[2025-01-14 13:13] VITALS: BMI 26.1
--- OUTSIDE RECORDS SUMMARY | 2025-02-01 00:16 | XMS_ITS | Patient Health Record ---
Author Organization [facility] [employer] Address [address] [place] [address] Care Team Providers Care Rv Repair Technician Name Role Phone Patrick Vivar Unavailable [phone] Reason For Referral No Information Medications Medication SIG (Take, Route, Fr equency, Duration) Notes Start Date End Date Status LORazepam 1 MG Tablet Oral Active Plan Of Treatment No Information Insurance Providers Payer Name Payer Address Payer Phone Subscriber Number Group Number Insured Name Patient Relationship to Insured Coverage Start Date Coverage End Date [facility] [address] [place] [address] [id number] BRIT TRINH Self - patient is the insured
--- OUTSIDE RECORDS SUMMARY | 2025-02-01 00:16 | XMS_ITS | Clinical Summary ---
Author Organization [facility] [email or web address] Address [address] [place] [address] Care Team Providers Care Conversion Worker Name Role Phone Unavailable Primary Care Provider Unavailabl e Source Comments [facility] [email or web address],non-owned Affiliates and Associated Physician Practices is amultiple site organization consisting of ambulatory clinics and hospital sitesin [place], [place], [place] and [place]. This disclosure is being madepursuant to the Care Everywhere program and may not contain all information available regarding this patient. Last updated 18.[email or web address] Allergies No known active allergies Medications * Be aware that medications may not be up to date on this document. Alwaysverify current medications with the patient. No known medications Family History Medical History Relation Name Comments CAD (Coronary Artery Disease) Father High Cholesterol Mother Relation Name Status Comments Father Mother Social History Tobacco Use Types Packs/Day Years Used Date Smoking Tobacco: Never Smokeless Tobacco: Never Sex and Gender Information Value Date Recorded Sex Assigned at Not on file Legal Sex Male 3:17 PM CDT Gender Identity Not on file Sexual Orientation Not on file Last Filed Vital Signs Vital Sign Reading Time Taken Comments Blood Pressure 120/74 06/21/2018 3:29 PM [employer] Pulse 127 06/21/2018 3:29 PM [employer] Temperature 38.6 C (101.5 F) 06/21/2018 3:29 PM [employer] Respiratory Rate - - Oxygen Saturation 97% 06/21/2018 3:29 PM [employer] Inhaled Oxygen Concentration - - Weight 79.4 kg (175 lb) 06/21/2018 3:29 PM [employer]AIL [employer] Height 172.7 cm (5' 8) 06/21/2018 3:29 PM [employer]AIL [employer] Body Mass Index 26.61 06/21/2018 3:29 PM RETAIL [employer]ER Plan of Treatment Health Maintenance Due Date Last Done Comments VERONICA (AGES 45-75) - COL ON CA SCREENING 1977 COLON MONITORING 1977 COLONOSCOPY - COLON CA SCREENING 1977 CT COLONOGRAPHY - COLON CA SCREENING 1977 Colorectal Cancer Screening 1977 FIT - COLON CA SCREENING 1977 FLEX SIG - COLON CA SCREENING 1977 LIPID TESTING 1977 HIV SCREENING 1992 HEPATITIS C SCREENING 09/15/1995 DTAP/TDAP/TD VACCINES (1 - Tdap) 1996 HEPATITIS B VACCINE (1 of 3 - 19+ 3-dose series) 1996 SCREENING FOR DIABETES 06/21/2018 DEPRESSION SCREENING 05/19/2024 COVID-19 VACCINE (1 - 2023-2 5 season) 2025 INFLUENZA VACCINE (#1) 2025 ZOSTER VACCINE (1 of 2) 09/20/2027 HIB VACCINE Aged Out No longer eligi ble based on patient's age to complete this topic HPV VACCINE Aged Out No longer eligi ble based on patient's age to complete this topic MENINGOCOCCAL (Group B) VACC INE SHARED DECISION-MAKING Aged Out No longer eligibl e based on patient's age to complete this topic MENINGOCOCCAL GROUPS A/C/Y/W VACCINE Aged Out No longer eligible b ased on patient's age to complete this topic PNEUMOCOCCAL VACCINE Aged Out No long er eligible based on patient's age to complete this topic Insurance [facility]
[2025-02-01 09:24] VITALS: BP 111/76; PULSE 62; RESP 16; TEMP 36.5; O2SAT 100; BMI 27.1
[2025-02-01] MEDS: LACTATED RINGERS 1,000 ML 150 ML IV CONT (09:43)
--- NOTE | 2025-02-01 10:08 | P.PNAN_ITS ---
Anes - Initial Pre Proc Eval Procedure: Operation Date: 02/01/25 10:30 Proposed Procedures p Screening Colonoscopy - Charlie Wesley DO Date/Time: 02/01/25 10:08 Surgeon: Charlie Wesley DO Pre Op Diagnosis: Neoplasm screening Patient Data Age: 49 Gender: M Height: 1.73 m Weight: 80.9 kg Last Vital Signs Temp 97.7 F 02/01/25 09:24 Pulse 62 02/01/25 09:24 Resp 16 02/01/25 09:24 BP 111/76 02/01/25 09:24 Pulse Ox 100 02/01/25 09:24 O2 Del Method Room Air 02/01/25 09:24 Allergies Allergy/AdvReac Type Severity Reaction Status Date / Time No Known Allergies Allergy Verified 02/01/25 09:23 Home Medications ?Medication ?Instructions ?Recorded ?Confirmed ?Type sertraline 25 mg tablet See Rx Instructions .Route 0 01/24/25 02/01/25 Rx .COMPLEX #90 tabs Patient hx anesthesia problems: none Family hx anesthesia problems: none Results Review: All pre-operative results and documents have been reviewed as part of the pre- operative evaluation. [facility] Past Medical History Medical History Obstructive sleep apnea on CPAP Borderline hypertension Hyperlipidemia Surgical History Surgical History No pertinent past surgical history Family History Family History Mother Patient's mother is in good health Family history of elevated blood lipids Father Family history of heart disease in male family member before age 55 Social History Social History Social History: Surrogate medical decision maker: Elana Hoover, spouse. Code status: Full code. Smoking packs per day: 2 Smoking cigarettes per day: 40.0 Years smoked: 5 Smoking pack-years: 10.00 Smoking status: Former smoker Tobacco type: cigarettes Second hand tobacco smoke exposure: No Alcohol intake: never Substance use: never Substance use type: does not use Do You Feel Safe in your Home?: Yes Lack of Transportation: No Lack of Food: Never True Current Housing: I Have Housing Concerned About Future Housing: No Difficulty Paying Gas/Electric Bills: No Difficulty Paying for Meds: No Currently Unemployed: No Education: Bachelor's Degree Difficulty w/ Childcare or Family Care: No Living arrangements: with family Additional living arrangements comments: Lives with family in [place]. 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 Spiritual care concerns: No Anes - Eval Final PreProcedure Day of Procedure 02/01/25 10:08 Patient weight: normal Lungs: normal air movement Airway: Mallampati scale class II Neurological: alert and oriented Last oral intake: >/= 8 hours ASA classification: II Emergent: no Anesthetic plan: proceed Anesthesia type and monitoring: general GIVS and standard monitoring Results Review: All pre-operative results and documents have been reviewed as part of the pre- operative evaluation. HEATHER on CPAP, ex smoker, quit approx 2001. Anxiety by hx. Informed Consent: The patient's anesthetic plan and its attendant risks and benefits were discussed with the patient/family/POA. Questions were solicited and answers provided to the satisfaction of the patient/family/POA.
--- NOTE | 2025-02-01 10:42 | P.HP_ITS ---
H&P: HPI History of Present Illness Date/Time: 02/01/25 10:42 Chief Complaint: screening for colorectal cancer Narrative: this is a 49-year-old man who presents for his 1st colonoscopy. He denies prior history of hematochezia or melena. He denies family history of colon cancer. Review of Systems Review of Systems: All systems reviewed & are unremarkable except as noted in HPI and below Constitutional: Constitutional: Denies chills, Denies fever(s), Denies headache(s) and Denies weight loss Eyes: Eyes: Denies change in vision ENT: Denies dizziness, Denies headache(s), Denies neck mass and Denies throat swelling Cardiovascular: Cardiovascular: Denies chest pain, Denies lightheadedness and Denies dyspnea Respiratory: Respiratory: Denies cough, Denies dyspnea and Denies wheezing Gastrointestinal: Gastrointestinal: Denies abdominal pain, Denies change in bowel habits, Denies nausea and Denies vomiting Genitourinary: Genitourinary: Denies hematuria and Denies dysuria Musculoskeletal: Musculoskeletal: Reports as per HPI Integumentary/Breasts: Skin/Breast: Reports as per HPI Neurologic: Denies dizziness and Denies headache(s) Allergic/Immunologic: Allergic/Immunologic: Denies throat swelling and Denies wheezing PMFSH Past Medical History Medical History Obstructive sleep apnea on CPAP Borderline hypertension Hyperlipidemia Surgical History Surgical History No pertinent past surgical history Family History Family History Mother Patient's mother is in good health Family history of elevated blood lipids Father Family history of heart disease in male family member before age 55 Social History Social History Social History: Surrogate medical decision maker: Elana Hoover, spouse. Code status: Full code. Smoking packs per day: 2 Smoking cigarettes per day: 40.0 Years smoked: 5 Smoking pack-years: 10.00 Smoking status: Former smoker Tobacco type: cigarettes Second hand tobacco smoke exposure: No Alcohol intake: never Substance use: never Substance use type: does not use Do You Feel Safe in your Home?: Yes Lack of Transportation: No Lack of Food: Never True Current Housing: I Have Housing Concerned About Future Housing: No Difficulty Paying Gas/Electric Bills: No Difficulty Paying for Meds: No Currently Unemployed: No Education: Bachelor's Degree Difficulty w/ Childcare or Family Care: No Living arrangements: with family Additional living arrangements comments: Lives with family in [place]. 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 Spiritual care concerns: No Meds Home Medications and Allergies Home Medications ?Medication ?Instructions ?Recorded ?Confirmed ?Type sertraline 25 mg tablet See Rx Instructions .Route 0 01/24/25 02/01/25 Rx .COMPLEX #90 tabs Allergies Allergy/AdvReac Type Severity Reaction Status Date / Time No Known Allergies Allergy Verified 02/01/25 09:23 Vital Signs Vital Signs - 24 hr 02/01/25 09:24 Temperature 97.7 F Pulse Rate 62 Respiratory Rate 16 Blood Pressure 111/76 Pulse Oximetry 100 Oxygen Delivery Room Air Exam Const: General: no acute distress and alert Orientation/consciousness: patient oriented x3 HENMT: Head: normocephalic and atraumatic Ears: hearing grossly normal bilaterally Face/Nose/Sinus: Normal nares present Mouth: Yes Normal oral and palatal mucosa present Eyes: Periorbital: periorbital findings normal Sclera: sclerae normal EOM: EOMs intact bilaterally Neck: Neck: normal visual inspection, no lymphadenopathy and trachea midline Chest: Chest palpation & inspection: normal inspection of the chest Resp: Effort & Inspection: normal respiratory effort Auscultation: clear to auscultation bilaterally Cardio: Jugular venous distension: no JVD Rate: regular rate Rhythm: regular rhythm Heart sounds: S1 normal heart sound present and S2 normal h eart sound present Peripheral pulses: Peripheral pulses 2+ throughout GI: Inspection: normal to inspection GI Palp: Yes Soft to palpation, No Tenderness to palpation present (GI), No Guarding due to palpation present (GI) and No Rebound tenderness present Percussion: Yes normal to percussion Auscultation: normal bowel sounds : General: Yes no CVA tenderness Back/Spine/Pelvis: Back: no CVA tenderness Neuro: General: patient oriented x3, no focal motor deficits and CN's II-XI intact bilaterally Cognition (Neuro): normal cognition Speech: normal speech Motor exam (neuro): 5/5 motor strength present throughout Extrem: General: capillary refill normal and no clubbing, cyanosis or edema Assessment and Plan Assessment and plan (1) Screening for colorectal cancer: Code(s): Z12.11 - Encounter for screening for malignant neoplasm of colon; Z12.12 - Encounter for screening for malignant neoplasm of rectum Status: Acute Assessment and Plan: I have recommended colonoscopy. I have discussed the procedure, risks, benefits, and alternatives. Questions were answered. Patient is agreeable to proceed.
[2025-02-01 11:08] VITALS: BP 98/55; PULSE 64; RESP 15; O2SAT 99
[2025-02-01 11:18] VITALS: BP 101/61; PULSE 57; RESP 16; O2SAT 99
[2025-02-01 11:28] VITALS: BP 109/64; PULSE 58; RESP 16; O2SAT 99
== END 2025-02-01 11:40 | disposition home or self-care (01) ==
PROVIDERS: PCP Internal Medicine; Visit Provider Surgery
PROC: 0DJD8ZZ Inspection of Lower Intestinal Tract, Via Natural or Artificial Opening Endoscopic (ICD-10-PCS; CPT 45378; principal; 2025-02-01 10:30)
DX: Z12.11 Encounter for screening for malignant neoplasm of colon (principal); E78.5 Hyperlipidemia, unspecified; I10 Essential (primary) hypertension; F41.9 Anxiety disorder, unspecified; G47.33 Obstructive sleep apnea (adult) (pediatric); Z99.89 Dependence on other enabling machines and devices; Z87.891 Personal history of nicotine dependence; Z82.49 Family history of ischemic heart disease and other diseases of the circulatory system
CPT/HCPCS: 45378; J2003; J2704; J7120